=== PATIENT | male | born 1995 | race Caucasian/White ===

== ENCOUNTER 2017-05-17 05:32 | Emergency (ER) | payer OTHER ==
[~2017-05-17] VITALS: Ht 177.8 cm; Wt 79.4 kg
[2017-05-17 05:32] VITALS: BP 144/75
[2017-05-17] MEDS ORDERED: IBUP100O24 PO (06:16)
--- NOTE | 2017-05-17 06:17 | PHYS DOC ---
Past History Past Medical History: No Pertinent History Past Surgical History: Tonsillectomy Alcohol Use: Occasionally Drug Use: None Adult General Chief Complaint Chief Complaint: SORE THROAT HPI HPI 22-year-old male presenting today with a sore throat. The present for a few days. He has swelling in his lymph nodes. He also reports nasal congestion. He denies fevers. He denies neck stiffness. The pain is a burning sensation that is worse with swallowing and nonradiating. Review of systems is negative for neck stiffness confusion cyanosis lethargy tongue swelling drooling difficulty swallowing. All other review of systems is negative unless otherwise noted in history of present illness. ED course: 22-year-old male presenting with sore throat. Strep test obtained. strep neg. I considered mononucleosis. I informed the patient to not engage in contact sports as a precaution. The patient was then discharged home in stable condition to follow up with their primary care physician over the next 2-3 days. They were to return if their symptoms worsened or if they were concerned for any reason. [id number] discharge instructions and return precautions were given. Patient's questions were answered to their satisfaction. Patient is comfortable plan. Review of Systems Review of Systems SEE ABOVE. Allergies Allergies Allergies Coded Allergies Type Severity Reaction Last Updated Verified No Known Drug Allergies 05/17/17 No Physical Exam Physical Exam SEE ABOVE Constitutional: Well developed, well nourished, no acute distress, non-toxic appearance. [] HENT: Normocephalic, atraumatic, bilateral external ears normal, oropharynx moist, patient has erythema of the posterior pharynx and lateral columns. There is no evidence of [employer] CRIMPING. Normal range of motion of the neck. Negative for densities sign. Negative Kernig sign. Patient has anterior lymphadenopathy. Eyes: PERRLA, EOMI, conjunctiva normal, no discharge. [] Neck: Normal range of motion, no tenderness, supple, no stridor. [] Cardiovascular:Heart rate regular rhythm, no murmur [] Lungs & Thorax: Bilateral breath sounds clear to auscultation [] Abdomen: Bowel sounds normal, soft, no tenderness, no masses, no pulsatile masses. [] Skin: Warm, dry, no erythema, no rash. [] Back: No tenderness, no CVA tenderness. [] Extremities: No tenderness, no cyanosis, no clubbing, ROM intact, no edema. [] Neurologic: Alert and oriented X 3, normal motor function, normal sensory function, no focal deficits noted. [] Psychologic: Affect normal, judgement normal, mood normal. [] Current Patient Data Vital Signs Vital Signs Date Time Temp Pulse Resp B/P (MAP) Pulse Ox O2 Delivery O2 Flow Rate FiO2 05/17/17 05:32 99.0 98 16 99 Room Air EKG EKG [] Radiology/Procedures Radiology/Procedures [] Course & Med Decision Making Course & Med Decision Making Pertinent Labs and Imaging studies reviewed. (See chart for details) [] Dragon Disclaimer Dragon Disclaimer This electronic medical record was generated, in whole or in part, using a voice recognition dictation system. Departure Departure: Impression: Primary Impression: Sore throat Disposition: 01 HOME, SELF-CARE Condition: STABLE Referrals: NON,STAFF (PCP) Additional Instructions: Thank you for allowing us to participate in your care today. You may have mononucleosis. I recommend you avoid contact sports with the following recommendations: I recommend not playing in contact sports until 4 weeks after the onset of symptoms. Including but not limited to football, gymnastics, rugby, hockey, lacrosse, wrestling, diving, and basketball. Noncontact sports can be started 3 weeks after onset of symptoms. For athletes planning to resume non-contact sports, training can be gradually restarted starting three weeks from symptom onset. This recommendation assumes that participants avoid any activities capable of causing chest or abdominal trauma. For strenuous contact sports (including football, gymnastics, rugby, hockey, lacrosse, wrestling, diving, and basketball) or activities associated with increased intraabdominal pressure (such as weightlifting) that may carry a higher risk of splenic injury, we recommend waiting a minimum of four weeks after illness onset. Followup with your primary care physician in 3 days if your symptoms do not improve. Call your Primary Doctor tomorrow and inform them of your visit today. If you do not have a primary care provider you can ask for a list of our primary care providers. Return to the emergency department you have any new or concerning findings. This should be evaluated by the primary care physician and any necessary consulting services for continued management within a few days after discharge. Return to emergency room if you have any new or concerning symptoms including but not limited to fever, chills, nausea, vomiting, intractable pain, any new rashes, chest pain, shortness of air, uncontrolled bleeding, difficulty breathing, and/or vision loss. Scripts Prednisolone Sod Phosphate (VERIPRED 20) 20 Mg/5 Ml Solution 5 ML PO BID for 5 Days, #30 ML 0 Refills Prov: ROD ULLOA MD 05/17/17 Ibuprofen (IBUPROFEN) 100 Mg/5 Ml Oral.susp 20 ML PO PRN Q8HRS Y for PAIN, #360 ML 0 Refills Prov: ROD ULLOA MD 05/17/17 ROD ULLOA MD May 17, 2017 06:17
[2017-05-17] MEDS ORDERED: PRED20SO PO (06:39)
== END 2017-05-17 06:50 | disposition home or self-care (01) ==
LOC: ER 05:32
DX: J02.9 Acute pharyngitis, unspecified (principal); R59.1 Generalized enlarged lymph nodes
CPT/HCPCS: 87070; 87880; 99283